=== PATIENT | female | born 2000 | race Caucasian/White ===

== ENCOUNTER 2025-03-22 12:26 | Emergency (ER) | payer MEDICAID, SELFPAY ==
--- NOTE | ~2025-03-22 | XR_ITS ---
EXAMINATION: XR CHEST CLINICAL INFORMATION: apsiration pneumonia? coughing COMPARISON: None available. TECHNIQUE: 2 views of the chest were obtained. FINDINGS: The cardiomediastinal silhouette is within normal limits. The lungs are well expanded. Mild central vascular prominence. Subtle hazy opacity in the left lower lung, could be related to bronchovascular crowding versus infiltrate. No dense consolidation. No effusion. No pneumothorax. No acute osseous abnormality. XR/XR chest 2V IMPRESSION: Left lower lung hazy opacity could be related to bronchovascular crowding versus inflammatory/infectious process/sequela of aspiration. Follow-up imaging as indicated. Electronically signed by: John Garcia MD 03/22/2025 04:16 PM JAMESON
[2025-03-22 12:30] VITALS: BP 143/87; PULSE 97; RESP 20; TEMP 36.7; O2SAT 99; BMI 30.2
--- NOTE | 2025-03-22 12:39 | ED.GENADULT ---
HPI - General Adult General Chief complaint: Upper Respiratory Symptoms Stated complaint: cough Time Seen by Provider: 03/22/25 16:33 Source: patient Mode of arrival: ambulatory Limitations: no limitations History of Present Illness ED Provider: Kip Caraballo HPI narrative: 24 yold female presents to the ED for three weeks of coughing after smoking crack for the first time. Patient was introduced to crack by friend. Patient states sore throat, headache, and coughing up phleghm. patient states no chest pain or shorntess of breath. Patient states she has not smoked crack ever since. Related Data Previous Rx's ?Medication ?Instructions ?Recorded amoxicillin 875 mg-potassium 1 tab PO Q12H 7 days #14 tabs 03/22/25 clavulanate 125 mg tablet doxycycline hyclate 100 mg capsule 100 mg PO BID 7 days #14 caps 03/22/25 Allergies Allergy/AdvReac Type Severity Reaction Status Date / Time No Known Allergies Allergy Verified 03/22/25 12:34 Review of Systems Review of Systems: coughing and sore throat Yes all other systems are reviewed and are [facility] Social History Social History Advance Directives: No Advance Directives Information Provided: Yes Do you have a plan to hurt others: No Plan Physical Exam ED Vital Signs: Vital Signs - 24 hr 03/22/25 12:30 Temperature 98.1 F Pulse Rate 97 Respiratory Rate 20 Blood Pressure 143/87 H Pulse Oximetry 99 Oxygen Delivery Method Room Air BMI result Body Mass Index 30.2 Const Orientation/consciousness: patient oriented x3 HENMT Head: Yes normal to inspection, Yes No palpable skull fracture present, Yes normocephalic and Yes atraumatic Ears: hearing grossly normal bilaterally, external ears normal, TM's normal bilaterally, TM normal on the right, TM normal on the left, EAC's normal, mastoids normal and no periauricular adenopathy Throat: Yes posterior oropharynx normal, Yes tonsils normal and Yes uvula midline Eyes General: appearance normal, both eyes and all related structures Neck Neck: Yes normal visual inspection, Yes full ROM, Yes no lymphadenopathy, Yes no meningeal signs, Yes trachea midline, Yes supple, No anterior neck swelling and No tender Chest Chest palpation & inspection: normal inspection of the chest and normal palpation of entire chest wall Resp Effort & Inspection: normal respiratory effort and able to speak in complete sentences Auscultation: clear to auscultation bilaterally Cardio Jugular venous distension: no JVD Heart sounds: S1 normal heart sound present and S2 normal heart sound present GI Inspection: Yes normal to inspection Palpation (GI): Soft to palpation, not firm, nontender, no guarding and not rigid General: Yes no CVA tenderness Back/Spine/Pelvis Back: no CVA tenderness and No back tenderness Skin General skin exam: no rashes or lesions noted, elasticity normal and turgor normal Neuro General: patient oriented x3, gait normal, tone normal, moves all extremities, Normal light touch and pain sensation, no meningeal signs, no focal motor deficits, CN's II-XI intact bilaterally and normal sensation to monofilament Extrem General: Yes normal to inspection, Yes full ROM and Yes capillary refill normal Psych Appearance: grossly normal, well kempt and not disheveled Course Course Course Narrative: RME: 24-year-old female presents to ED for coughing for the past 2 weeks ever since she started using crack for the 1st time. Patient states she inhaled crack and ever since having bad cough. Patient also states sore throat and headaches. Swabs, x-ray ordered Medical Decision Making Medical Decision Making [facility] Narrative: [age] year female presents to ED for coughing up yellow phlegm sore throat ever since she smoked crack for the 1st time about 2 weeks ago. Patient has not smoked carotid ever since. Patient denies any chest pain or shortness of breath. Patient is positive for strep. X-ray shows pneumonia. Patient has been having symptoms for 1 week and last smoked crack 3 weeks ago patient can be discharged outpatient with p.o. antibiotics. No need for inpatient's IV antibiotics. Patient is not hypoxic. Patient is not septic. Patient explained worrisome signs and inforemd to return to the ED if she has them. Patient given in formation for recovery clinic at [place] for follow up Differential Diagnosis Differential Diagnoses: The differential diagnosis associated with the presentation includes (Pneumonia, strep, aspiration pneumonia,) Admission/Observation Consideration of admission/observation: Escalation of care including admission/observation considered Lab Data [facility] Lab Attestation statement: I reviewed the patient's lab results. 03/22/25 14:47 03/22/25 14:47 Labs: Lab Results 03/22/25 03/22/25 Range/Units 14:47 14:48 WBC 12.0 H (4.8-10.8) X10*3/uL RBC 4.99 (4.20-5.50) X10*6/uL Hgb 14.6 (12.0-16.0) g/dl Hct 43.7 (37.0-47.0) % MCV 87.6 (80.0-98.0) fL MCH 29.3 (27.0-33.0) pg MCHC 33.4 (31.0-35.0) g/dl RDW 13.8 (11.0-16.0) % Plt Count 422 H (160-400) X10*3/uL MPV 9.2 L (9.4-12.3) fL Immature Gran % (Auto) 0.5 H (0.0-0.4) % Neut % (Auto) 77.8 H (45-73) % Lymph % (Auto) 15.3 L (20-40) % [place] % (Auto) 4.5 (2-11) % Eos % (Auto) 1.5 (0-4) % Baso % (Auto) 0.4 (0-2) % Lymph # (Auto) 1.8 (1.2-4.9) X10*3/uL [place] # (Auto) 0.5 (0.1-1.2) X10*3/uL Eos # (Auto) 0.2 (0.0-0.4) X10*3/uL Baso # (Auto) 0.1 (0.0-0.2) X10*3/uL Abs Immat Gran (auto) 0.06 H (0.00-0.03) X10*3/uL Absolute Neuts (auto) 9.4 H (2.0-8.3) x10*3/uL Absolute Nucleated RBC 0.000 (0.0-0.012) X10*3/uL Nucleated RBC % (auto) 0.0 (0.0-0.2) /100WBC Sodium 138 (135-145) mmol/L Potassium 4.2 (3.3-5.1) mmol/L Chloride 109 H (96-108) mmol/L Carbon Dioxide 21 L (22-29) mmol/L Anion Gap 12 (12-20) BUN 11 (9-16) mg/dL Creatinine 0.60 (0.5-1.4) mg/dL Estim Creat Clear Calc 151.9 Estimated GFR > 60 Random Glucose 129 H (60-115) mg/dL Calcium 9.4 (8.4-10.2) mg/dL Total Bilirubin 0.2 (0.0-1.0) mg/dL AST 23 (5-31) U/L ALT 19 (0-31) U/L Alkaline Phosphatase 73 (39-117) U/L Total Creatine Kinase 32 (26-140) U/L Total Protein 7.6 (6.5-8.0) g/dL Albumin 4.2 (3.5-5.0) g/dL Beta HCG, Quant < 2 mIU/mL Urine Color Yellow Urine Appearance Turbid Urine pH 7.5 (5.0-9.0) Ur Specific [place] 1.025 (1.005-1.025) Urine Protein Trace (Neg-Trace) mg/dL Urine Glucose (UA) Negative (Negative) mg/dL Urine Ketones Trace (Negative) mg/dL Urine Blood Negative (Negative) Urine Nitrite Negative (Negative) Ur Leukocyte Esterase Moderate (2+) H (Negative) Urine RBC 0-2 (0-2) /HPF Urine WBC >50 H (0-5) /HPF Ur Squamous Epith Cells 11-20 (0-2) /HPF Urine Bacteria 3+ (None Seen) Hyaline Casts 0-2 (0-2) /LPF Urine Test NEGATIVE (NEGATIVE) Urine Opiates Screen Not Detected (Not Detect) Ur Buprenorphine Scrn Not Detected (Not Detect) ng/mL Ur Oxycodone Screen Not Detected (Not Detect) ng/mL Urine Methadone Screen Not Detected (Not Detect) ng/mL Urine Fentanyl Screen Not Detected (Not Detect) Ur Barbiturates Screen Not Detected (Not Detect) Ur Phencyclidine Scrn Not Detected (Not Detect) Ur Amphetamines Screen Not Detected (Not Detect) U Benzodiazepines Scrn Not Detected (Not Detect) Urine Cocaine Screen POSITIVE H (Not Detect) U Marijuana (THC) Screen POSITIVE H (Not Detect) Influenza Type A (PCR) NEGATIVE (Negative) Influenza Type B (PCR) NEGATIVE (Negative) RSV RNA Qual (PCR) NEGATIVE (Negative) SARS-CoV-2 RNA (RT-PCR) NEGATIVE (Negative) S. pyogenes GrpA RUCHI Positive A (Negative) Independent Interpretation I performed an independent interpretation of an: Plain X-Ray Radiology Impression Discussion of test interpretation with radiology: I have reviewed the radiologist's reading. Independent Historian Clinical information obtained from an independent historian. History obtained from or confirmed by: Other (patinet) Prescription Management I considered prescription management with: Antibiotic Discharge Plan Discharge Clinical Impression: Strep throat, Pneumonia, Substance abuse Patient Disposition: Home, Self-Care Instructions: Strep Throat (ED), Community Acquired Pneumonia (ED), Polysubstance Use Disorder (ED) Additional Instructions: . Recommend follow up with primary care provider. Return to the ED immediately for any chest pain, shortness of breath, coughing up blood, weakness, dizziness, drooling, change in voice, or any other concerning symptoms. Ordering Physician: Kip Caraballo Date of Service: 03/22/25 Procedure(s): XR chest 2V Accession Number(s): [id number] cc: Kip Caraballo; Physician,Unknown ~ Reason for Exam: apsiration pneumonia? coughing EXAMINATION: XR CHEST CLINICAL INFORMATION: apsiration pneumonia? coughing COMPARISON: None available. TECHNIQUE: 2 views of the chest were obtained. FINDINGS: The cardiomediastinal silhouette is within normal limits. The lungs are well expanded. Mild central vascular prominence. Subtle hazy opacity in the left lower lung, could be related to bronchovascular crowding versus infiltrate. No dense consolidation. No effusion. No pneumothorax. No acute osseous abnormality. XR/XR chest 2V IMPRESSION: Left lower lung hazy opacity could be related to bronchovascular crowding versus inflammatory/infectious process/sequela of aspiration. Follow-up imaging as indicated. Electronically signed by: John Garcia MD 03/22/2025 04:16 PM [facility] Prescriptions: New amoxicillin-pot clavulanate 875-125 mg tablet 1 tab PO Q12H 7 Days Qty: 14 0RF doxycycline hyclate 100 mg capsule 100 mg PO BID 7 Days Qty: 14 0RF Referrals: [facility] [Provider Group, Internal Medicine] - 2 days Referral Note: Strep throat/pneumonia Clinical Impression: Substance abuse; Strep throat; Pneumonia Stand Alone Forms: Work/School Release Interventions: ED Discharge Assessment Last Done: 03/22/25 18:27 Discharge Date/Time: 03/22/25 18:55 Print Language: Wolof
[2025-03-22 15:06] LABS: MANUAL DIFF FLAG NO
[2025-03-22 15:08] LABS: Hematocrit 43.7 % (37.0-47.0); Hemoglobin 14.6 g/dl (12.0-16.0); Imm Gran Abs Auto 0.06 X10*3/uL (0.00-0.03); Imm Gran Pct Auto 0.5 % (0.0-0.4); Lymphocytes Absolute Auto 1.8 X10*3/uL (1.2-4.9); Mean Corpuscular HGB Conc 33.4 g/dl (31.0-35.0); Mean Corpuscular Hemoglobin 29.3 pg (27.0-33.0); Mean Corpuscular Volume 87.6 fL (80.0-98.0); NRBC Abs Auto 0.000 X10*3/uL (0.0-0.012); NRBC Pct Auto 0.0 /100WBC (0.0-0.2); Platelet Count 422 X10*3/uL (160-400); Red Blood Count 4.99 X10*6/uL (4.20-5.50); White Blood Count 12.0 X10*3/uL (4.8-10.8)
[2025-03-22 15:19] LABS: IDNOW Serial# 55D5AD1C; Strep A Nucleic Acid Positive (Negative)
[2025-03-22 15:34] LABS: Alanine Aminotransferase 19 U/L (0-31); Albumin Level 4.2 g/dL (3.5-5.0); Alkaline Phosphatase 73 U/L (39-117); Anion Gap 12 (12-20); Aspartate Amino Transferase 23 U/L (5-31); Blood Urea Nitrogen 11 mg/dL (9-16); Calcium 9.4 mg/dL (8.4-10.2); Carbon Dioxide 21 mmol/L (22-29); Chloride 109 mmol/L (96-108); Creatinine Clr Calc Pharmacy 151.9; Estimated Glomerular Filt Rate > 60; Potassium 4.2 mmol/L (3.3-5.1); Sodium 138 mmol/L (135-145); Total Protein 7.6 g/dL (6.5-8.0)
[2025-03-22 15:35] LABS: UPreg QC Valid YES
[2025-03-22 15:37] LABS: Appearance Urine Turbid; Glucose Urine UA Negative (Negative); PH 7.5 (5.0-9.0); Specific Gravity - Urine 1.025 (1.005-1.025); UMIC TRIGGER UACC YES
[2025-03-22 15:42] LABS: UACC Culture Trigger YES
[2025-03-22 15:50] LABS: Resp Syncy Virus RNA Qual PCR NEGATIVE (Negative); SARS COV2 PCR INHOUSE NEGATIVE (Negative)
[2025-03-22 16:06] LABS: Cannabinoid Screen Urine POSITIVE (Not Detect)
[2025-03-22 18:27] VITALS: BP 113/62; PULSE 94; RESP 20; TEMP 35.9; O2SAT 99
--- OUTSIDE RECORDS SUMMARY | 2025-03-22 19:04 | XMS_ITS | Encounter Summary ---
Author Organization [employer]: [facility] Address [address] [place] [address] Care Team Providers Care Hog Worker Name Role Phone Lashell Schwarz NP Primary Care Provider + [phone] Encounter Details Date Type Department Care Team (Late st Contact Info) Description 07/22/2023 Notation [facility] Health Information Management [facility], [address] [place] [phone] Generic, Provider [address] [address] RECORD RELEASE Social History Tobacco Use Types Packs/Day Years Used Date Smoking Tobacco: Never Assessed Comments Unknown Sex and Gender Information Value Date Recorded Sex Assigned at Not on file Legal Sex Female 4:18 PM EDT Gender Identity Not on file Sexual Orientation Not on file documented as of this encounter Plan of Treatment Not on file documented as of this encounter Visit Diagnoses Not on filedocumented in this encounter Additional Health Concerns Infection Onset Date Last Indicated Resolved Time Influenza Rule-Out 11/12/2023 11/12/2023 2:50 PM EDT COVID-19 Rule-Out 11/12/2023 11/12/2023 11/12/2023 2:50 PM EDT documented as of this encounter Care Teams Hog Worker Relationship Specialty Start Date End Date Lashell Schwarz NP [address] [place] [address] PCP - General Nurse Practitioner - Family Medicine 06/30/23 documented as of this encounter
--- OUTSIDE RECORDS SUMMARY | 2025-03-22 19:04 | XMS_ITS | Clinical Summary ---
Author Organization [employer] Address [address] [place] [address] Care Team Providers Care Package Wrapper Name Role Phone Magdalena Ortiz NP Primary Care Provider [phone] Allergies Active Allergy Reactions Criticality Noted Date Comments Cephalothin 01/29/2023 Gluten Meal Rash Low 11/26/2021 Other Reaction(s): Stomach Pain Other Reaction(s): Stomach Pain Pt reports fatigue Pt reports fatigue Tilactase Rash Low 11/26/2021 Other Reaction(s): Stomach Pain Other Reaction(s): Stomach Pain Pt reports fatigue Pt reports fatigue Medications * This document contains information received from the source organization and may not represent a complete record from that organization. buPROPion SR (Wellbutrin SR) 150 MG 12 hr tablet Take 150 mg by mouth in the morning. Active ARIPiprazole (Abilify) 5 MG tablet Take 5 mg by mouth Once per day. 5 Active ferrous sulfate 325 (65 Fe) MG tablet Take 325 mg by mouth every other day. 5 05/04/19 26 Active guanFACINE (Intuniv) 1 mg 24 hr tablet Take 1 tablet by mouth Once per day. 4 Active hydrocortisone (Anusol-HC) 2.5 % rectal cream Insert 1 Application into the rectum 2 times daily. 0 Active Vyvanse 20 MG capsule Take 20 mg by mouth in the morning. 5 Active lithium ER (Eskalith) 450 MG 12 hr tablet Take 900 mg by mouth at bedtime. 4 Active melatonin 3 MG tablet Take 3 mg by mouth at bedtime. 2 Active omeprazole OTC (PriLOSEC OTC) 20 MG EC tablet Take 20 mg by mouth Once per day. 4 04/04/20 25 Active prazosin (Minipress) 2 MG capsule Take 2 mg by mouth at bedtime. 2 Active sertraline (Zoloft) 100 MG tablet Take 1 tablet by mouth Once per day. 5 Active nicotine (Nicoderm CQ) 14 MG/24HR patchIndication s:Tobacco dependence Place 1 patch on the skin 1 (one) time each day at the same time. 30 patch 1 5 Active nicotine polacrilex (Nicorette) 4 MG gumIndications: Tobacco dependence Chew 1 each (4 mg) if needed for smoking cessation. 100 each 2 5 Active Active Problems Problem Noted Date Diagnosed Date Tobacco dependence 10/13/2024 Abdominal pain 09/22/2024 Overview (09/22/2024): Removal Reason: resolved Candidiasis of mouth 09/22/2024 Injury of toe 09/22/2024 Inattention 05/09/2024 Chest wall pain 04/04/2024 Dyspepsia 04/04/2024 Fatigue 04/04/2024 Overweight 11/12/2023 Impaired fasting glucose 11/04/2023 Chlamydia infection 07/28/2023 Patellofemoral stress syndrome 07/28/2023 History of suicidal ideation 11/21/2021 Unspecified mood (affective) disorder 11/08/2021 Borderline personality disorder (CMS/HCC) 2021 Bleeding internal hemorrhoids 09/15/2021 Dyspareunia in female 06/03/2021 Chronic midline low back pain without sciatica 0 04/26/2021 Keratosis pilaris 04/26/2021 PTSD (post-traumatic stress disorder) 02/15/2020 Moderate recurrent major depression (CMS/HCC) Disorder of vitamin B12 11/16/2018 Overview (09/22/2024): 373 Removal Reason: resolved Low ferritin level 11/16/2018 Overview (09/22/2024): resolved Removal Reason: resolved resolved Removal Reason: resolved Positive screening for depre ssion on 9-item Patient Health Questionnaire (PHQ-9) 11/15/2018 Preventative health care 06/08/2018 Overview (09/22/2024): [facility] Removal Reason: resolved Abnormal radiographic examination 07/24/2017 Resolved Problems Problem Noted Date Diagnosed Date Resolved Date Acute upper respiratory infection 09/22/2024 09/22/2024 Acute urticaria 09/22/2024 09/22/2024 Overview (09/22/2024): Removal Reason: resolved Urinary tract infectious disease 09/22/2024 09/22/2024 Subacute cough 04/04/2024 09/22/2024 Infective otitis externa 10/11/200908/2024 Streptococcal sore throat 09/28/2009 Family History Medical History Relation Name Comments Alcohol abuse Father Alcohol abuse Mother Mental illness Mother Relation Name Status Comments Father Mother Social History Tobacco Use Types Packs/Day Years Used Date Smoking Tobacco: Never Assessed Comments Unknown Sex and Gender Information Value Date Recorded Sex Assigned at Female 09/02/2024 5:35 PM EDT Legal Sex Female 5:31 PM EDT Gender Identity Female 09/02/2024 5:35 PM EDT Sexual Orientation Straight 09/02/2024 5: 35 PM EDT Plan of Treatment Health Maintenance Due Date Last Done Comments Depression Screening 1999 HIV Screening 1999 SDOH Screening 1999 Disability Screening 1999 Alcohol/Substance Use Screening 2011 Tobacco Screening 2011 Family Planning (PISQ) 08/15/2014 Hepatitis C Screening 08/15/2017 Pap Smear 08/15/2020 COVID-19 Vaccine ( season) 2024 Influenza Vaccine (#1) 2024 , 01/29/2023, 02/14/2020, Additional history exists DTaP/Tdap/Td Vaccines (10 - Td or Tdap) 07/31/2029 08/01/2019, 08/01/2019, 07/11/2019, Additional history exists Zoster Vaccines (1 of 2) 08/15/2049 RSV Patients and Patients Aged 60 years or older (1 - 1-dose 75+ series) 08/15/2074 Hepatitis B Vaccines Completed 10/24/2000, 1999, 1999 HIB Vaccines Completed 11/19/2000, 01/19, 1999, Additional history exists IPV Vaccines Completed 08/20/2004, 110 09/2000, 1999, Additional history exists HPV Vaccines Completed 07/15/2012, 02/19, 01/16/2012, Additional history exists Meningococcal Vaccine Completed 06/08/2018, 014 Hepatitis A Vaccines Aged Out No long er eligible based on patient's age to complete this topic Meningococcal B Vaccine Aged Out No l onger eligible based on patient's age to complete this topic Pneumococcal Vaccine: Pediatrics (0 to 5 Years) and At-Risk Patients (6 to 49) Years Aged Out No longer eligible based on patient's age to complete this topic RSV under 20 months Aged Out No longe r eligible based on patient's age to complete this topic Rotavirus Vaccines Aged Out No longer eligible based on patient's age to complete this topic Insurance Care Teams Package Wrapper Relationship Specialty Start Date End Date Magdalena Ortiz NP [address] [place] [address] PCP - General Family Medicine 11/22/24
--- OUTSIDE RECORDS SUMMARY | 2025-03-22 19:04 | XMS_ITS | Encounter Summary ---
Author Organization [employer]: [facility] & [facility] Address [address] [place] [address] Care Team Providers Care Magazine Grinder Loader Name Role Phone Lashell Schwarz NP Primary Care Provider + [phone] Encounter Details Date Type Department Care Team (Late st Contact Info) Description 03/16/2024 Notation [facility] Health Information Management [facility], [address] [place] [phone] Generic, Provider [address] [address] AUTHORIZATION Social History Tobacco Use Types Packs/Day Years Used Date Smoking Tobacco: Every Day Vaping PHQ-2 Answer Date Recorded PHQ-2 Total Score - Complete PHQ-9 if score >=3 2 01/04/2024 PHQ-9 Answer Date Recorded PHQ-9 Total Score 14 01/04/2024 Comments No Sex and Gender Information Value Date Recorded Sex Assigned at Not on file Legal Sex Female 4:18 PM EDT Gender Identity Not on file Sexual Orientation Not on file documented as of this encounter Plan of Treatment Not on file documented as of this encounter Visit Diagnoses Not on filedocumented in this encounter Care Teams Magazine Grinder Loader Relationship Specialty Start Date End Date Lashell Schwarz NP [address] [place] [address] PCP - General Nurse Practitioner - Family Medicine 06/30/23 documented as of this encounter
--- OUTSIDE RECORDS SUMMARY | 2025-03-22 19:04 | XMS_ITS | Encounter Summary ---
Author Organization [employer]: [facility] & [facility] Address [address] [place] [address] Care Team Providers Care Soa Integration Architect Name Role Phone Lashell Schwarz NP Primary Care Provider + [phone] Encounter Details Date Type Department Care Team (Late st Contact Info) Description 03/19/2021 Notation [facility] Health Information Management [facility], [address] [place] [phone] Generic, Provider [address] [address] EMERGENCY REPORT Social History Tobacco Use Types Packs/Day Years [...] documented as of this encounter Care Teams Soa Integration Architect Relationship Specialty Start Date End Date Lashell Schwarz NP [address] [place] [address] PCP - General Nurse Practitioner - Family Medicine 06/30/23 documented as of this encounter
--- OUTSIDE RECORDS SUMMARY | 2025-03-22 19:04 | XMS_ITS | Clinical Summary ---
Author Organization [facility]: [facility] & [facility] Care Address [address] [place] [address] Care Team Providers Care Bobbin Cleaning Machine Operator Name Role Phone Lashell Schwarz NP Primary Care Provider + [phone] Allergies Active Allergy Reactions Criticality Noted Date Comments Cephalothin 01/29/2023 Gluten Meal Rash Low 11/26/2021 Other Reaction(s): Stomach Pain Pt reports fatigue Lactase Rash Low 11/26/2021 Other Reaction(s): Stomach Pain Pt reports fatigue Medications buPROPion ER, SR, (WELLBUTRIN-SR) 150 MG Oral TABLET SR 12 HR Take 150 mg by mouth once daily every morning. Active Omeprazole Magnesium (PRILOSEC OTC) 20 MG Oral Tab ECIndications:Dy spepsia Take 20 mg by mouth daily. 30 Tablet 5 4 04/04/20 25 Active Additional Information Patient not taking.Reported on 05/09/2024 ferrous sulfate (IRON) 325 (65 Fe) MG Oral TabIndications:I danial deficiency anemia, unspecified iron deficiency anemia type Take 1 Tablet (325 mg total) by mouth every other day. 45 Tablet 3 5 05/04/19 26 Active Active Problems Problem Noted Date Diagnosed Date Inattention 05/09/2024 Assessment & Plan (05/09/2024 12:34 PM EST): Per patient, diagnosed with ADHD at neuropsych testing. Awaiting appointment with new psychiatrist. Can take over prescriptions in 6 months if stable and if documentation from psychiatrist supporting this. Dyspepsia 04/04/2024 Assessment & Plan (04/04/2024 2:13 PM EST): Start omeprazole 20 mg daily. Referral to GI. Follow-up here in one month, sooner as needed. Fatigue 04/04/2024 Assessment & Plan (04/04/2024 2:13 PM EST): Recent labs normal, check chest xray, follow-up here in one month, sooner as needed. Chest wall pain 04/04/2024 Assessment & Plan (04/04/2024 2:14 PM EST): Suspect secondary to coughing. Check chest xray today. Subacute cough 04/04/2024 Assessment & Plan (04/04/2024 2:13 PM EST): Chest chest xray today. Encouraged to continue efforts to quit vaping. Preventative health care 01/04/2024 Assessment & Plan (01/04/2024 3:13 PM EDT): - Healthy lifestyle reviewed. See patient instructions. - Encouraged healthy diet and regular exercises. - Immunizations: Flu today - Labs ordered previously, needs to have done - Pap up to date with [facility] - Follow-up in one year for routine physical exam. Keratosis pilaris 01/04/2024 Assessment & Plan (01/04/2024 3:13 PM EDT): Dermatology referral requested, placed today. Overweight 11/12/2023 Chronic midline low back pain without sciatica 0 11/04/2023 Assessment & Plan (11/04/2023 12:25 PM EDT): Check xray today. Consider PT or ortho referral pending results. Impaired fasting glucose 11/04/2023 Assessment & Plan (11/04/2023 12:24 PM EDT): Update labs. Patellofemoral stress syndrome 07/28/2023 0 07/28/2023 Chlamydia infection 07/28/2023 Assessment & Plan (07/28/2023 11:37 PM EDT): Repeat testing due to incomplete treatment course. Consider repeat STI screening along with pap at physical scheduled for December. Dyspareunia in female 06/03/2021 07/28/2023 Assessment & Plan (07/28/2023 11:37 PM EDT): Referral to Pelvic Floor PT through [facility] will call if any issues scheduling. Generalized anxiety disorder 02/15/202012/2023 Assessment & Plan (07/28/2023 11:38 PM EDT): Continue current dose of wellbutrin, will hold off on refilling sertraline at this time due to patient preference, will defer restarting or further changes to psych provider. Forms completed to be faxed to [facility] for medical information release. Follow-up here as scheduled, sooner as needed. Moderate recurrent major depression 02/15/2020 07/28/2023 Disorder of vitamin B12 11/16/2018 07/28/19 Overview (07/28/2023): 373 Removal Reason: resolved Assessment & Plan (11/04/2023 12:24 PM EDT): Update labs. Low ferritin level 11/16/2018 07/28/2023 Overview (07/28/2023): resolved Removal Reason: resolved Assessment & Plan (11/04/2023 12:24 PM EDT): Update labs. Resolved Problems Problem Noted Date Diagnosed Date Resolved Date Weight gain 11/04/2023 11/12/2023 Assessment & Plan (11/04/2023 12:24 PM EDT): Lifestyle management reviewed. Will check TSH given rapid weight gain in the last year. Immunizations Immunization Administration Dates Next Due DTaP 08/20/2004, 1,02/10/2000,12/26,1999 DTaP (Daptacel) 08/01/2019,07/11/2019 FLUARIX 12/29/2013 HIB (Unspecified) 11/19/2000, 0,1999,10/17 HPV quadrivalent 07/15/2012, 2,01/16/2012,11/12,08/26/2010 Hep B (Unspecified) 10/24/2000,1999,1999 Influenza (Unspecified) 03/02/2009 Influenza H1N1 (Unspecified) 03/02/2009 Influenza Quad (Afluria,Fluarix,Flulaval,Fluzone) 06/08/2018 Influenza Quad (Flucelvax) 01/29/2023,02/14/2020 ,12/28/2018 Influenza Tri (Afluria, FluL aval, Fluzone, Fluarix) 01/04/2024 MMR 08/20/2004,11/19/2000 Meningococcal - Menactra 06/08/2018,12/29/2013 Polio - IPV 08/20/2004, 1,1999,10/17 Tdap 08/01/2019,09/26/2011 Varicella Vaccine 12/08/2007,08/20/2004 Family History Medical History Relation Comments Hypertension Maternal Grandfather Stroke Maternal Grandfather Hypertension Mother Diabetes Paternal Aunt Diabetes Paternal Cousin Arrhythmia Paternal Grandfather Stroke Paternal Grandfather Cancer Paternal Grandmother Relation Status Comments Maternal Grandfather Mother Paternal Aunt Paternal Cousin Paternal Grandfather Paternal Grandmother Social History Tobacco Use Types Packs/Day Years Used Date Smoking Tobacco: Every Day Vaping Tobacco Cessation:Ready to Q uit: Not Asked; Counseling Given: Yes PHQ-2 Answer Date Recorded PHQ-2 Total Score - Complete PHQ-9 if score >=3 2 01/04/2024 PHQ-9 Answer Date Recorded PHQ-9 Total Score 14 01/04/2024 Comments No Sex and Gender Information Value Date Recorded Sex Assigned at Not on file Legal Sex Female 4:18 PM EDT Gender Identity Not on file Sexual Orientation Not on file Last Filed Vital Signs Vital Sign Reading Time Taken Comments Blood Pressure 120/60 05/09/2024 11:59 AM EST Pulse 114 05/09/2024 11:59 AM EST Temperature 36.9 C (98.5 F) 11/12/2023 2:28 PM EDT Respiratory Rate - - Oxygen Saturation 98% 05/09/2024 11:59 AM EST Inhaled Oxygen Concentration - - Weight 105.7 kg (233 lb) 05/09/2024 11:59 AM EST Height 166.4 cm (5' 5.5 ) 01/04/2024 1:33 PM EDT Body Mass Index 38.18 01/04/2024 1:33 PM EDT Plan of Treatment Health Maintenance Due Date Last Done Comments HIV Screening 08/15/2014 Hepatitis C Screening 08/15/2017 Pneumococcal Vaccine: Pediatrics (0-5 years) and At-Risk Patients (6-50 years) (1 of 2 - PCV) 08/15/2018 Cervical Cancer Screening 08/15/2020 COVID-19 Vaccine ( - season) 2024 Influenza Vaccine (#1) 2024 , 01/29/2023, 02/14/2020, Additional history exists DTaP/Tdap/Td Vaccines (10 - Td or Tdap) 07/31/2029 08/01/2019, 08/01/2019, 07/11/2019, Additional history exists Hepatitis B Vaccines Completed 10/24/2000, 1999, 1999 HIB Vaccines Completed 11/19/2000, 01/19, 1999, Additional history exists IPV Vaccines Completed 08/20/2004, 09/2000, 1999, Additional history exists Varicella Vaccines Completed 12/08/2007, 08/20/2004 HPV Vaccines Completed 07/15/2012, 02/19, 01/16/2012, Additional history exists Meningococcal Vaccines Completed 06/08/2018, 2013 Chlamydia Screening Discontinued 07/29/2023 Hepatitis A Vaccines Aged Out No long er eligible based on patient's age to complete this topic Meningococcal B (MenB) Vaccines Aged Out No longer eligible based on patient's age to complete this topic Procedures Procedure Name Priority Date/Time Associated Diagnosis Comments CHLAMYDIA/GONORRHOE AE TMA - [facility] Routine 07/29/2023 1:33 PM EDT Chlamydia infection from Last 3 Months or Most Recently Relevant to Health Maintenance Results * Chlamydia/Gonorrhoeae (STD) - [facility] (07/29/2023 1:33 PM EDT) CHLAMYDIA TRACHOMATIS RNA, TMA- [facility] TNP [facility] Comment: TEST NOT PERFORMED No suitable specimen received. Please review the test requirements at [email or web address] Other 07/29/2023 1:33 PM EDT 07/30/2023 1:47 PM EDT us Lashell Schwarz NP LAB MICROBIOLOGY - GENERAL O RDERASHEMAR Final Result [facility] [address] [place] [address] from Last 3 Months or Most Recently Relevant to Health Maintenance [place] Care Teams Bobbin Cleaning Machine Operator Relationship Specialty Start Date End Date Lashell Schwarz NP [address] [place] [address] PCP - General Nurse Practitioner - Family Medicine 06/30/23
--- OUTSIDE RECORDS SUMMARY | 2025-03-22 19:04 | XMS_ITS | Encounter Summary ---
Author Organization [facility] Address [address] [place] [address] [address] [place] [address] Care Team Providers Care Government Teacher Name Role Phone Magdalena Ortiz NP Primary Care Provider [phone] Encounter Details Date Type Department Care Team (Late st Contact Info) Description 12/01/2024 Telephone [facility] [address] [place] [phone] Magdalena Ortiz NP [address] [place] [phone] Social History Tobacco Use Types Packs/Day Years Used Date Smoking Tobacco: Never Assessed Comments Unknown Sex and Gender Information Value Date Recorded Sex Assigned at Female 09/02/2024 5:35 PM EDT Legal Sex Female 5:31 PM EDT Gender Identity Female 09/02/2024 5:35 PM EDT Sexual Orientation Straight 09/02/2024 5: 35 PM EDT documented as of this encounter Plan of Treatment Not on file documented as of this encounter Visit Diagnoses Not on filedocumented in this encounter Care Teams Government Teacher Relationship Specialty Start Date End Date Magdalena Ortiz NP [address] [place] [id number] PCP - General Family Medicine 11/22/24 documented as of this encounter
--- OUTSIDE RECORDS SUMMARY | 2025-03-22 19:04 | XMS_ITS | Encounter Summary ---
Author Organization [facility]: [facility] Care Address [address] [place] [address] Care Team Providers Care Fruit Press Operator Name Role Phone Lashell Schwarz NP Primary Care Provider + [phone] Encounter Details Date Type Department Care Team (Late st Contact Info) Description 11/21/2023 Notation [facility] Health Information Management [facility], [address] [place] [id number] Generic, Provider [address] [address] REFERRAL Social History Tobacco Use Types Packs/Day Years Used Date Smoking Tobacco: Every Day Vaping Comments No Sex and Gender Information Value Date Recorded Sex Assigned at Not on file Legal Sex Female 4:18 PM EDT Gender Identity Not on file Sexual Orientation Not on file documented as of this encounter Plan of Treatment Not on file documented as of this encounter Visit Diagnoses Not on filedocumented in this encounter Care Teams Fruit Press Operator Relationship Specialty Start Date End Date Lashell Schwarz NP [address] [place] [address] PCP - General Nurse Practitioner - Family Medicine 06/30/23 documented as of this encounter
--- OUTSIDE RECORDS SUMMARY | 2025-03-22 19:04 | XMS_ITS | Encounter Summary ---
Author Organization [facility]: [facility] Care Address [address] [place] [address] Care Team Providers Care Reconciliation Accountant Name Role Phone Lashell Schwarz NP Primary Care Provider + [phone] Encounter Details Date Type Department Care Team (Late st Contact Info) Description 11/30/2023 Notation [facility] Health Information Management [employer] [facility], [address] [place] [phone] Generic, Provider [address] [address] REFERRAL Social History Tobacco Use Types Packs/Day [...] on filedocumented in this encounter Care Teams Reconciliation Accountant Relationship Specialty Start Date End Date Lashell Schwarz NP [address] [place] [address] PCP - General Nurse Practitioner - Family Medicine 06/30/23 documented as of this encounter
== END 2025-03-22 18:55 | disposition home or self-care (01) ==
PROVIDERS: Physician Assistant; Emergency Provider Emergency Medicine
DX: J02.0 Streptococcal pharyngitis (principal); J18.9 Pneumonia, unspecified organism; F14.10 Cocaine abuse, uncomplicated; F15.10 Other stimulant abuse, uncomplicated
CPT/HCPCS: 36415; 71046; 80053; 80307; 81001; 81025; 82550; 84702; 85025; 87086; 87637; 87651; 99282; 99284

== ENCOUNTER → 2025-03-22 15:50 | Outpatient (BNV) | payer MEDICAID, SELFPAY | PROVIDERS: Emergency Provider Emergency Medicine; Visit Provider Radiology Diagnostic Ultrasound | DX: R91.8 Other nonspecific abnormal finding of lung field (principal) | CPT/HCPCS: 71046 ==